=== PATIENT | male | born 1960 | race Caucasian/White ===

== ENCOUNTER 2024-04-08 09:32 | Emergency (ER) | payer BC, SELFPAY ==
[2024-04-08 09:45] VITALS: BP 129/77; PULSE 56; RESP 18; O2SAT 100
--- NOTE | 2024-04-08 09:51 | ED.GENADULT ---
HPI - General Adult General Chief complaint: Skin/Abscess/Foreign Body Stated complaint: Gout Time Seen by Provider: 04/08/24 09:51 Source: patient Mode of arrival: ambulatory Limitations: no limitations History of Present Illness HPI narrative: 63-year-old male with history of gout presents today with pain to left 1st MTP joint X1 day. Patient states this is where he gets his gout pain. Has a prescription for indomethacin. Checked bottle today and it is . call primary care physician in is not able to get appointment until September. Patient here for indomethacin refill. Ambulatory with steady gait. All systems reviewed and negative except as noted above. Related Data Allergies Allergy/AdvReac Type Severity Reaction Status Date / Time No Known Allergies Allergy Verified 04/08/24 09:42 Review of Systems Review of Systems: CONSTITUTIONAL: Denies fever, chills, or sweats. EYES: Denies visual changes, redness, or discharge. ENT: Denies rhinorrhea, congestion, sore throat, or otalgia. CARDIOVASCULAR: Denies chest pain, palpitations, or edema. RESPIRATORY: Denies cough or dyspnea. GASTROINTESTINAL: Denies abdominal pain, nausea, vomiting, or diarrhea. GENITOURINARY: Denies dysuria or hematuria. SKIN: Denies rash or itching. MUSCULOSKELETAL: Denies back pain, joint pain, or myalgia. Reports pain to left 1st MTP NEUROLOGIC: Denies headache, numbness, or weakness. PSYCHIATRIC: Denies anxiety or depression. All other systems reviewed are negative, except as documented in HPI. [facility] Past Medical History Medical History (Updated 04/08/24 @ 10:01 by Callie Wilson NP) Erectile dysfunction after radical prostatectomy Idiopathic gout, left ankle and foot Personal history of prostate cancer Surgical History Surgical History (Updated 06/01/20 @ 08:08 by Jamaica Cope MA) History of prostate surgery (~2019) Family History Family History (Updated 06/01/20 @ 08:09 by Jamaica Cope MA) Mother Cerebrovascular accident Father Heart disease Social History Social History (Updated 06/01/20 @ 08:10 by Jamaica Cope MA) Smoking status: Never smoker Alcohol intake: never Substance use: never Substance use type: does not use Living arrangements: with family Comments At time of signature, agree with nursing past medical, surgical, social and family history. There is no relevant family history pertinent to the presenting complaint. Exam Narrative: GENERAL: This is a well-nourished, well-developed patient, in no apparent distress. HEAD: normocephalic, atraumatic. EYES: PERRL. Sclera clear/white. Vision is grossly intact. EARS: External ears normal NOSE: External nose normal NECK: Neck supple, non-tender without lymphadenopathy, masses or thyromegaly. CARDIOVASCULAR: Regular rate and rhythm without murmurs, gallops, or rubs. RESPIRATORY: Clear to auscultation. Breath sounds equal bilaterally. No wheezes, rales, or rhonchi. SKIN: warm, Dry, intact with no suspicious lesions or rash, good texture and turgor. NEURO: awake, alert, and oriented to person, place and time. There were no obvious focal neurologic abnormalities. EXTREMITIES: tenderness to left 1st MTP joint. Mild swelling without erythema or warmth. Course Course Level of Care: Express Care Visit Vital Signs Vital signs: Vital Signs Pulse Rate 56 L 04/08/24 09:45 Respiratory Rate 18 04/08/24 09:45 Blood Pressure 129/77 04/08/24 09:45 Pulse Oximetry 100 04/08/24 09:45 Oxygen Delivery Room Air 04/08/24 09:45 Pulse Rate 56 L 04/08/24 09:45 Respiratory Rate 18 04/08/24 09:45 Blood Pressure 129/77 04/08/24 09:45 Pulse Oximetry 100 04/08/24 09:45 Oxygen Delivery Room Air 04/08/24 09:45 Reviewed Medical Decision Making MDM Narrative Medical decision making narrative: Patient is aware of diagnosis, understands and agrees to treatment plan.
== END 2024-04-08 10:05 | disposition home or self-care (01) ==
PROVIDERS: Emergency Provider Nurse Practitioner Family; PCP Family Medicine
DX: M10.9 Gout, unspecified (principal); Z85.46 Personal history of malignant neoplasm of prostate
CPT/HCPCS: 99213; G0463